=== PATIENT | female | born 1990 | race Caucasian/White ===

== ENCOUNTER 2017-01-01 20:59 | Emergency (ER) | payer OTHER ==
[~2017-01-01 20:59] MED LIST: AMOXICILLIN875 MG PO; DEPO-PROVER150 MG/ML INJ; FLONASE 0.05% N16 G1 INH; NAPROSYN500 MG PO; NO MEDICATIONS; SUDAFED PO; TOPAMAX PO
== END 2017-01-01 21:07 | disposition home or self-care (01) ==
LOC: SED 20:59
DX: R21 Rash and other nonspecific skin eruption (principal)
CPT/HCPCS: 99282